=== PATIENT | female | born 1940 | race Caucasian/White ===

== ENCOUNTER 2025-01-24 16:42 | Inpatient (IN) | payer MEDICARE, BC ==
[~2025-01-24] VITALS: Ht 144.8 cm; Wt 47.6 kg
[2025-01-24] MEDS ORDERED: GLAUCOMA DROPS (17:49)
[2025-01-24 18:10] LABS: BASOPHILS % (AUTO) 0.5 % (0.0-2.0); EOSINOPHILS % (AUTO) 0.4 % (0.0-7.0); HEMATOCRIT 37.9 % (31.2-41.9); HEMOGLOBIN 12.3 g/dL (10.9-14.3); LYMPHOCYTES # (AUTO) 1.5 K/uL (0.8-4.8); LYMPHOCYTES % (AUTO) 27.8 % (20.5-51.5); MEAN CORPUSCULAR HEMOGLOBIN 28.4 uug (24.7-32.8); MEAN CORPUSCULAR HGB CONC 32 g/dL (32.3-35.6); MEAN CORPUSCULAR VOLUME 87.9 fL (75.5-95.3); MONOCYTES # (AUTO) 0.5 K/uL (0.1-1.30); MONOCYTES % (AUTO) 8.5 % (0.0-11.0); NEUTROPHILS # (AUTO) 3.4 K/uL (1.8-8.9); NEUTROPHILS % (AUTO) 62.8 % (38.5-71.5); PLATELET COUNT (AUTO) 264 K/uL (179-408); RED BLOOD CELL COUNT(AUTO) 4.32 MIL/uL (3.63-4.92); RED CELL DISTRIBUTION WIDTH 14.7 % (12.3-17.7); WHITE BLOOD COUNT (AUTO) 5.4 K/uL (3.8-11.8)
[2025-01-24 18:37] LABS: DIFFERENTIAL COMMENT 1
[2025-01-24 18:49] LABS: ALANINE AMINOTRANSFERASE 29 U/L (14-59); ALBUMIN 3.8 g/dL (3.4-5.0); ALKALINE PHOSPHATASE 69 U/L (50-136); ASPARTATE AMINOTRANSFERASE 23 U/L (15-37); BILIRUBIN,DIRECT 0.2 mg/dL (0.0-0.2); BILIRUBIN,TOTAL 0.5 mg/dL (0.2-1.0); CALCIUM 11.3 mg/dL (8.5-10.1); CARBON DIOXIDE 31 mmol/L (21-32); CHLORIDE 104 mmol/L (98-107); CREATININE 0.6 mg/dL (0.6-1.3); GLUCOSE 104 mg/dL (74-106); LIPASE 117 U/L (16-77); POTASSIUM 4.8 mmol/L (3.5-5.1); SODIUM SERUM 140 mmol/L (136-145); TOTAL PROTEIN, SERUM 7.2 g/dL (6.4-8.2); UREA NITROGEN, BLOOD 20 mg/dL (7-18)
[2025-01-24 19:31] LABS: *BILIRUBIN,URIN NEGATIVE (NEGATIVE); *CLARITY,URINE CLEAR (CLEAR); *COLOR,URINE YELLOW (YELLOW); *KETONES,URINE NEGATIVE (NEGATIVE); *PROTEIN,URINE NEGATIVE (NEGATIVE); *UROBILINOGEN,URINE 0.2 E.U./dl (NORMAL); LEUKOCYTE ESTERASE ,URINE 2+ (NEGATIVE); NITRITE, URINE NEGATIVE (NEGATIVE); PH,URINE 6.5 (5.0-8.0); UGLUCOSE NEGATIVE (NEGATIVE)
[2025-01-24 19:33] LABS: *BLOOD, URINE TRACE (NEGATIVE)
[2025-01-24] MEDS ORDERED: ONDANSETRON 4 MG/2 ML VIAL IV ONE (20:00)
[2025-01-24] MEDS ORDERED: MORPHINE SULFATE 2 MG/1 ML DISP.SYRIN IV ONE (20:00)
[2025-01-24 20:10] LABS: BACTERIA,URINE FEW /HPF (NONE SEEN); CALCIUM OXALATE CRYSTALS,UR FEW /HPF (NONE SEEN); RBC,URINE 0-3 /HPF (0-3)
[2025-01-24] MEDS ORDERED: HYDROCODONE/APAP 10-325 MG TABLET ONE (20:13)
[2025-01-24] MEDS: HYDROCODONE/APAP 10-325 MG TABLET PO ONE (20:17)
[2025-01-24] MEDS: VANCOMYCIN IV 1,000 MG in IV DEXTROSE 5% 250 ML IV ONE (21:03)
[2025-01-24] MEDS ORDERED: MAGNESIUM HYDROXIDE 30 ML LIQUID UDC PO PRN (22:45)
[2025-01-24] MEDS ORDERED: REMEDY ESSENTIAL ZINC PASTE 113 GM TP PRN (22:45)
[2025-01-24] MEDS ORDERED: ONDANSETRON 4 MG/2 ML VIAL IV PRN (22:45)
[2025-01-25 00:45] VITALS: BP 145/83; TEMP 98.3; O2SAT 98
[2025-01-25] MEDS: IV NS 1000 ML 1,000 ML IV PRN (01:06)
[2025-01-25] MEDS: ACETAMINOPHEN 325 MG TABLET PO PRN (01:17)
[2025-01-25] MEDS ORDERED: METHOCARBAMOL 500 MG TABLET PO PRN (03:45)
[2025-01-25 05:49] VITALS: BP 161/89; TEMP 98.2; O2SAT 99
[2025-01-25] MEDS ORDERED: PIPERACILLIN SODIUM/TAZOBACTAM 3.375 G in IV DEXTROSE 5% 50 ML IV SCH (06:00)
[2025-01-25 07:41] LABS: BASOPHILS % (AUTO) 0.7 % (0.0-2.0); EOSINOPHILS % (AUTO) 0.7 % (0.0-7.0); HEMATOCRIT 38.7 % (31.2-41.9); HEMOGLOBIN 12.8 g/dL (10.9-14.3); LYMPHOCYTES # (AUTO) 1.3 K/uL (0.8-4.8); LYMPHOCYTES % (AUTO) 24.1 % (20.5-51.5); MEAN CORPUSCULAR HGB CONC 33 g/dL (32.3-35.6); MEAN CORPUSCULAR VOLUME 87.6 fL (75.5-95.3); MONOCYTES # (AUTO) 0.4 K/uL (0.1-1.30); MONOCYTES % (AUTO) 8.1 % (0.0-11.0); NEUTROPHILS # (AUTO) 3.5 K/uL (1.8-8.9); NEUTROPHILS % (AUTO) 66.4 % (38.5-71.5); PLATELET COUNT (AUTO) 255 K/uL (179-408); RED BLOOD CELL COUNT(AUTO) 4.42 MIL/uL (3.63-4.92); RED CELL DISTRIBUTION WIDTH 14.1 % (12.3-17.7); WHITE BLOOD COUNT (AUTO) 5.2 K/uL (3.8-11.8)
[2025-01-25 07:43] LABS: DIFFERENTIAL COMMENT 1
[2025-01-25 07:56] LABS: CALCIUM 10.4 mg/dL (8.5-10.1); CARBON DIOXIDE 32 mmol/L (21-32); CHLORIDE 106 mmol/L (98-107); CREATININE 0.7 mg/dL (0.6-1.3); GLUCOSE 90 mg/dL (74-106); PHOSPHOROUS 3.1 mg/dL (2.5-4.9); POTASSIUM 3.5 mmol/L (3.5-5.1); SODIUM SERUM 131 mmol/L (136-145); UREA NITROGEN, BLOOD 14 mg/dL (7-18)
[2025-01-25] MEDS: PIPERACILLIN SODIUM/TAZOBACTAM 3.375 G in IV DEXTROSE 5% 100 ML IV SCH (10:07)
[2025-01-25] MEDS: METHOCARBAMOL 500 MG TABLET PO PRN (10:33)
[2025-01-25] MEDS ORDERED: DORZ1DRO7 LEFTEYE (11:13)
[2025-01-25] MEDS ORDERED: TRAV2.5D7 LEFTEYE (11:13)
[2025-01-25] MEDS ORDERED: CARB15DR OP (11:13)
[2025-01-25 12:21] VITALS: BP 127/80; TEMP 97.5; O2SAT 98
[2025-01-25 16:53] VITALS: TEMP 98
[2025-01-25] MEDS ORDERED: CARBOXYMETHYLCELLULOSE SODIUM OP PRN (18:15)
[2025-01-26] MEDS: PANTOPRAZOLE SODIUM 40 MG TABLET.DR PO SCH (06:40)
[2025-01-26 07:29] LABS: BASOPHILS % (AUTO) 0.5 % (0.0-2.0); EOSINOPHILS % (AUTO) 1.1 % (0.0-7.0); HEMATOCRIT 32.5 % (31.2-41.9); HEMOGLOBIN 11.2 g/dL (10.9-14.3); LYMPHOCYTES % (AUTO) 26.2 % (20.5-51.5); MEAN CORPUSCULAR HGB CONC 35 g/dL (32.3-35.6); MEAN CORPUSCULAR VOLUME 86.8 fL (75.5-95.3); MONOCYTES # (AUTO) 0.3 K/uL (0.1-1.30); MONOCYTES % (AUTO) 8.9 % (0.0-11.0); NEUTROPHILS # (AUTO) 2.5 K/uL (1.8-8.9); NEUTROPHILS % (AUTO) 63.3 % (38.5-71.5); PLATELET COUNT (AUTO) 226 K/uL (179-408); RED BLOOD CELL COUNT(AUTO) 3.74 MIL/uL (3.63-4.92); RED CELL DISTRIBUTION WIDTH 14.4 % (12.3-17.7); WHITE BLOOD COUNT (AUTO) 3.9 K/uL (3.8-11.8)
[2025-01-26 07:51] LABS: DIFFERENTIAL COMMENT 1
[2025-01-26] MEDS: ENSURE ENLIVE (VAN) 240 ML LIQUID PO SCH (08:03)
[2025-01-26 08:28] LABS: ALANINE AMINOTRANSFERASE 33 U/L (14-59); ALBUMIN 3.2 g/dL (3.4-5.0); ALKALINE PHOSPHATASE 63 U/L (50-136); ASPARTATE AMINOTRANSFERASE 22 U/L (15-37); BILIRUBIN,TOTAL 0.7 mg/dL (0.2-1.0); CALCIUM 10.4 mg/dL (8.5-10.1); CARBON DIOXIDE 28 mmol/L (21-32); CHLORIDE 106 mmol/L (98-107); CHOLESTEROL 175 mg/dL (<200); CREATININE 0.8 mg/dL (0.6-1.3); GLUCOSE 102 mg/dL (74-106); HDL CHOLESTEROL 50 mg/dL (40-60); MAGNESIUM 2.1 mg/dL (1.8-2.4); NT-PRO BNP 103 pg/mL (0-125); PHOSPHOROUS 3.4 mg/dL (2.5-4.9); POTASSIUM 3.6 mmol/L (3.5-5.1); SODIUM SERUM 141 mmol/L (136-145); TOTAL PROTEIN, SERUM 6.6 g/dL (6.4-8.2); TRIGLYCERIDES 98 MG/DL (30-150); UREA NITROGEN, BLOOD 11 mg/dL (7-18)
[2025-01-26 09:39] LABS: THYROID STIMULATING HORMONE 0.514 mIU/mL (0.358-3.740)
[2025-01-26 10:06] LABS: LIPASE 82 U/L (16-77)
[2025-01-26 11:19] VITALS: BP 117/60; TEMP 98.4; O2SAT 96
[2025-01-26] MEDS ORDERED: POLYVINYL ALCOHOL OPHT DROPS 15 ML BOTTLE EACHEYE PRN (11:45)
[2025-01-26 15:57] VITALS: BP 111/67; TEMP 98.4; O2SAT 98
[2025-01-26 23:27] VITALS: BP 149/85; TEMP 98.7; O2SAT 97
[2025-01-27 06:53] VITALS: BP 147/81; TEMP 98.6; O2SAT 96
[2025-01-27] MEDS: CYANOCOBALAMIN 1000 MCG/ML VIAL IM SCH (08:06)
[2025-01-27 10:42] VITALS: BP 146/86; TEMP 97.5; O2SAT 97
[2025-01-27 15:45] VITALS: BP 152/89; TEMP 97.6; O2SAT 96
[2025-01-27] MEDS: PIPERACILLIN SODIUM/TAZOBACTAM 3.375 G in IV DEXTROSE 5% 100 ML IV SCH (17:03)
[2025-01-27] MEDS ORDERED: CEFTRIAXONE 1 G in IV DEXTROSE 5% 50 ML IV SCH (18:00)
[2025-01-27] MEDS: MIRALAX 17 GM POWD.PACK PO ONE (18:43)
[2025-01-27 19:40] VITALS: BP 125/78; TEMP 98.6; O2SAT 95
[2025-01-27] MEDS: DORZOLAMIDE/TIMOLOL OPHT DROP 10 ML BOTTLE LEFTEYE SCH (20:33)
[2025-01-27] MEDS: DOCUSATE SODIUM 100 MG CAPSULE PO SCH (20:33)
[2025-01-27] MEDS: LATANOPROST OPHT DROP 2.5 ML BOTTLE LEFTEYE SCH (20:33)
[2025-01-28 06:03] VITALS: BP 147/94; TEMP 98.1; O2SAT 99
[2025-01-28 07:31] LABS: BASOPHILS % (AUTO) 0.8 % (0.0-2.0); EOSINOPHILS % (AUTO) 0.7 % (0.0-7.0); HEMATOCRIT 39.3 % (31.2-41.9); HEMOGLOBIN 13.1 g/dL (10.9-14.3); LYMPHOCYTES # (AUTO) 1.4 K/uL (0.8-4.8); LYMPHOCYTES % (AUTO) 28.3 % (20.5-51.5); MEAN CORPUSCULAR HEMOGLOBIN 28.9 uug (24.7-32.8); MEAN CORPUSCULAR HGB CONC 33 g/dL (32.3-35.6); MONOCYTES # (AUTO) 0.3 K/uL (0.1-1.30); NEUTROPHILS # (AUTO) 3.1 K/uL (1.8-8.9); NEUTROPHILS % (AUTO) 63.2 % (38.5-71.5); PLATELET COUNT (AUTO) 279 K/uL (179-408); RED BLOOD CELL COUNT(AUTO) 4.51 MIL/uL (3.63-4.92); RED CELL DISTRIBUTION WIDTH 14.8 % (12.3-17.7); WHITE BLOOD COUNT (AUTO) 4.9 K/uL (3.8-11.8)
[2025-01-28 08:08] LABS: DIFFERENTIAL COMMENT 1
[2025-01-28 08:11] LABS: CALCIUM 10.5 mg/dL (8.5-10.1); CARBON DIOXIDE 29 mmol/L (21-32); CHLORIDE 107 mmol/L (98-107); CREATININE 0.6 mg/dL (0.6-1.3); GLUCOSE 90 mg/dL (74-106); MAGNESIUM 2.2 mg/dL (1.8-2.4); PHOSPHOROUS 3.3 mg/dL (2.5-4.9); POTASSIUM 3.7 mmol/L (3.5-5.1); SODIUM SERUM 145 mmol/L (136-145); UREA NITROGEN, BLOOD 11 mg/dL (7-18)
[2025-01-28] MEDS ORDERED: ASPIRIN EC 81 MG TABLET.DR PO SCH (09:00)
[2025-01-28 11:14] VITALS: BP 134/75; TEMP 98.2; O2SAT 96
[2025-01-28] MEDS ORDERED: Lactose-Free Food PO (12:15)
[2025-01-28] MEDS ORDERED: ACET325T53 PO (12:15)
[2025-01-28] MEDS ORDERED: LATA2.5D2 LEFTEYE (12:15)
[2025-01-28] MEDS ORDERED: POLY15DR27 EACHEYE (12:15)
[2025-01-28] MEDS ORDERED: DOCU-141 PO (12:15)
[2025-01-28] MEDS ORDERED: MAGN400O6 PO ×2 (12:15→15:24)
[2025-01-28] MEDS ORDERED: PANT40TA49 PO (12:15)
[2025-01-28] MEDS ORDERED: MENT113O TP (12:15)
[2025-01-28] MEDS ORDERED: CYAN10006 IM (12:15)
[2025-01-28] MEDS ORDERED: DORZ10DR11 LEFTEYE ×2 (12:15→15:14)
[2025-01-28] MEDS ORDERED: ACID1TAB4 PO (12:18)
[2025-01-28] MEDS ORDERED: NITR100C11 PO (12:18)
[2025-01-28] MEDS ORDERED: ACET650T10 PO (15:15)
[2025-01-28] MEDS ORDERED: LACT-215 PO (15:17)
[2025-01-28] MEDS ORDERED: LATA7.5D LEFTEYE (15:22)
[2025-01-28] MEDS ORDERED: MENT113O TOP (15:27)
[2025-01-28] MEDS ORDERED: POLY15DR31 EACHEYE (15:29)
== END 2025-01-28 14:29 | DRG 689 ==
LOC: ER 16:47 → MEDSURG3 23:00
PROVIDERS: ADMIT Nurse Practitioner Acute Care; ATTEND Internal Medicine
DX: N13.6 Pyonephrosis (principal); G92.8 Other toxic encephalopathy; K85.90 Acute pancreatitis without necrosis or infection, unspecified; D68.59 Other primary thrombophilia; M48.56XA Collapsed vertebra, not elsewhere classified, lumbar region, initial encounter for fracture; E44.1 Mild protein-calorie malnutrition; E87.1 Hypo-osmolality and hyponatremia; H40.9 Unspecified glaucoma; Z74.09 Other reduced mobility; Z87.440 Personal history of urinary (tract) infections; Z90.710 Acquired absence of both cervix and uterus; K57.30 Diverticulosis of large intestine without perforation or abscess without bleeding; D18.03 Hemangioma of intra-abdominal structures; E88.09 Other disorders of plasma-protein metabolism, not elsewhere classified; E86.0 Dehydration; Z88.3 Allergy status to other anti-infective agents; Z88.5 Allergy status to narcotic agent; Z88.6 Allergy status to analgesic agent; K56.41 Fecal impaction; R91.8 Other nonspecific abnormal finding of lung field; I25.10 Atherosclerotic heart disease of native coronary artery without angina pectoris; E83.52 Hypercalcemia; R79.89 Other specified abnormal findings of blood chemistry; G89.29 Other chronic pain; R26.2 Difficulty in walking, not elsewhere classified; G31.84 Mild cognitive impairment of uncertain or unknown etiology; Z91.040 Latex allergy status; M15.9 Polyosteoarthritis, unspecified; E53.8 Deficiency of other specified B group vitamins; Z88.2 Allergy status to sulfonamides; Z88.1 Allergy status to other antibiotic agents; Z91.81 History of falling
CPT/HCPCS: 36415; 71045; 74018; 83690; 83735; 84100; 84443; 84484; 85025; 85730; 86301; 87040; 87086; 93005; G0378; J0696; J2543; J3420; J7040

== ENCOUNTER 2025-01-28 13:30 | Inpatient (IN) | payer MEDICARE, BC ==
[2025-01-27 22:30] VITALS: BP 152/89; TEMP 97.6
[2025-01-27 23:01] VITALS: BP 152/89; TEMP 97.6
[~2025-01-28] VITALS: Ht 144.8 cm; Wt 47.6 kg
[~2025-01-28 13:30] MED LIST: ACET325T53 PO; ACID1TAB4 PO; CARB15DR OP; CYAN10006 IM; DOCU-141 PO; DORZ10DR11 LEFTEYE; DORZ1DRO7 LEFTEYE; IOHEXOL 300MG/ML 100 ML INFUS..BTL ONE; IV NORMAL SALINE 250 ML IV ONE; LATA2.5D2 LEFTEYE; Lactose-Free Food PO; MAGN400O6 PO; MENT113O TP; NITR100C11 PO; PANT40TA49 PO; POLY15DR27 EACHEYE; SWABABLE VALVE TRANSFER SET EA MC ONE; TRAV2.5D7 LEFTEYE
[2025-01-28] MEDS ORDERED: DORZ10DR11 LEFTEYE (15:14)
[2025-01-28] MEDS ORDERED: ACET650T10 PO (15:15)
[2025-01-28] MEDS ORDERED: LACT-215 PO (15:17)
[2025-01-28] MEDS ORDERED: LATA7.5D LEFTEYE (15:22)
[2025-01-28] MEDS ORDERED: MAGN400O6 PO (15:24)
[2025-01-28] MEDS ORDERED: MENT113O TOP (15:27)
[2025-01-28] MEDS ORDERED: POLY15DR31 EACHEYE (15:29)
[2025-01-28 16:00] VITALS: TEMP 99
[2025-01-28 20:18] VITALS: BP 127/80; TEMP 98.3; O2SAT 97
[2025-01-28] MEDS: NITROFURANTOIN/NITROFURAN MAC 100 MG CAPSULE PO SCH (20:42)
[2025-01-28] MEDS: DOCUSATE SODIUM 100 MG CAPSULE PO SCH (20:43)
[2025-01-28] MEDS: DORZOLAMIDE/TIMOLOL OPHT DROP 10 ML BOTTLE LEFTEYE SCH (20:43)
[2025-01-29 05:15] VITALS: BP 158/78; TEMP 98.2; O2SAT 95
[2025-01-29] MEDS: PANTOPRAZOLE SODIUM 40 MG TABLET.DR PO SCH (06:14)
[2025-01-29 07:50] VITALS: BP 131/73; TEMP 98.5; O2SAT 98
[2025-01-29] MEDS: ACIDOPHILUS/BULGARICUS CHEW TAB PO SCH (08:17)
[2025-01-29] MEDS: ENSURE ENLIVE (VAN) 240 ML LIQUID PO SCH (08:17)
[2025-01-29] MEDS: CYANOCOBALAMIN 1000 MCG/ML VIAL IM SCH (08:19)
[2025-01-29 16:00] VITALS: BP 131/82; TEMP 98.5; O2SAT 96
[2025-01-29 21:57] VITALS: BP 118/74; TEMP 98.5; O2SAT 92
[2025-01-30] MEDS: ACETAMINOPHEN 325 MG TABLET PO PRN (00:42)
[2025-01-30 06:12] VITALS: BP 140/78; TEMP 97.8
[2025-01-30 08:00] VITALS: TEMP 98.3
[2025-01-30 16:36] VITALS: TEMP 97.7
[2025-01-30 20:30] VITALS: BP 122/63; TEMP 98.3; O2SAT 92
[2025-01-31 06:00] VITALS: BP 121/67; TEMP 98.5; O2SAT 97
[2025-01-31 08:00] VITALS: BP 135/65; TEMP 97.2; O2SAT 96
[2025-01-31] MEDS: REMEDY ESSENTIAL ZINC PASTE 113 GM TOP PRN (11:12)
[2025-01-31 15:05] LABS: BASOPHILS % (AUTO) 0.8 % (0.0-2.0); EOSINOPHILS # (AUTO) 0.1 K/uL (0.0-0.7); HEMATOCRIT 42.5 % (31.2-41.9); LYMPHOCYTES # (AUTO) 1.5 K/uL (0.8-4.8); LYMPHOCYTES % (AUTO) 29.8 % (20.5-51.5); MEAN CORPUSCULAR HEMOGLOBIN 28.6 uug (24.7-32.8); MEAN CORPUSCULAR HGB CONC 33 g/dL (32.3-35.6); MEAN CORPUSCULAR VOLUME 87.1 fL (75.5-95.3); MONOCYTES # (AUTO) 0.6 K/uL (0.1-1.30); MONOCYTES % (AUTO) 10.7 % (0.0-11.0); NEUTROPHILS % (AUTO) 57.7 % (38.5-71.5); PLATELET COUNT (AUTO) 305 K/uL (179-408); RED BLOOD CELL COUNT(AUTO) 4.88 MIL/uL (3.63-4.92); RED CELL DISTRIBUTION WIDTH 14.5 % (12.3-17.7); WHITE BLOOD COUNT (AUTO) 5.1 K/uL (3.8-11.8)
[2025-01-31 15:08] LABS: DIFFERENTIAL COMMENT 1
[2025-01-31 15:16] LABS: ALANINE AMINOTRANSFERASE 33 U/L (14-59); ALBUMIN 3.6 g/dL (3.4-5.0); ALKALINE PHOSPHATASE 74 U/L (50-136); ASPARTATE AMINOTRANSFERASE 19 U/L (15-37); BILIRUBIN,TOTAL 0.5 mg/dL (0.2-1.0); CALCIUM 11.1 mg/dL (8.5-10.1); CARBON DIOXIDE 34 mmol/L (21-32); CHLORIDE 103 mmol/L (98-107); CREATININE 0.7 mg/dL (0.6-1.3); GLUCOSE 108 mg/dL (74-106); POTASSIUM 4.2 mmol/L (3.5-5.1); SODIUM SERUM 142 mmol/L (136-145); TOTAL PROTEIN, SERUM 7.6 g/dL (6.4-8.2); UREA NITROGEN, BLOOD 16 mg/dL (7-18)
[2025-01-31 16:00] VITALS: BP 159/85; TEMP 97.2; O2SAT 97
[2025-01-31 20:50] VITALS: BP 117/66; TEMP 98.4; O2SAT 93
[2025-02-01] MEDS: TRAMADOL HCL 50 MG TABLET PO PRN (06:04)
[2025-02-01 06:31] VITALS: BP 132/75; TEMP 98.1; O2SAT 96
[2025-02-01 07:57] VITALS: TEMP 97.4
[2025-02-01 16:20] VITALS: TEMP 97.3
[2025-02-01 19:54] VITALS: BP 96/58; TEMP 98.4; O2SAT 93
[2025-02-01] MEDS: POLYVINYL ALCOHOL OPHT DROPS 15 ML BOTTLE EACHEYE PRN (20:44)
[2025-02-02 05:30] VITALS: BP 141/84; TEMP 98.2; O2SAT 97
[2025-02-02 07:40] LABS: BASOPHILS % (AUTO) 0.8 % (0.0-2.0); HEMATOCRIT 37.4 % (31.2-41.9); HEMOGLOBIN 12.5 g/dL (10.9-14.3); LYMPHOCYTES # (AUTO) 1.7 K/uL (0.8-4.8); LYMPHOCYTES % (AUTO) 38.2 % (20.5-51.5); MEAN CORPUSCULAR HEMOGLOBIN 29.1 uug (24.7-32.8); MEAN CORPUSCULAR HGB CONC 34 g/dL (32.3-35.6); MEAN CORPUSCULAR VOLUME 86.9 fL (75.5-95.3); MONOCYTES # (AUTO) 0.3 K/uL (0.1-1.30); MONOCYTES % (AUTO) 7.7 % (0.0-11.0); NEUTROPHILS # (AUTO) 2.3 K/uL (1.8-8.9); NEUTROPHILS % (AUTO) 52.3 % (38.5-71.5); PLATELET COUNT (AUTO) 258 K/uL (179-408); RED CELL DISTRIBUTION WIDTH 14.6 % (12.3-17.7); WHITE BLOOD COUNT (AUTO) 4.4 K/uL (3.8-11.8)
[2025-02-02 07:54] LABS: CALCIUM 10.7 mg/dL (8.5-10.1); CARBON DIOXIDE 32 mmol/L (21-32); CHLORIDE 105 mmol/L (98-107); CREATININE 0.8 mg/dL (0.6-1.3); DIFFERENTIAL COMMENT 1; GLUCOSE 91 mg/dL (74-106); POTASSIUM 3.8 mmol/L (3.5-5.1); SODIUM SERUM 142 mmol/L (136-145); UREA NITROGEN, BLOOD 19 mg/dL (7-18)
[2025-02-02 08:00] VITALS: BP 118/73; TEMP 98; O2SAT 98
[2025-02-02 14:39] LABS: *BILIRUBIN,URIN NEGATIVE (NEGATIVE); *CLARITY,URINE CLEAR (CLEAR); *COLOR,URINE YELLOW (YELLOW); *KETONES,URINE NEGATIVE (NEGATIVE); *PROTEIN,URINE NEGATIVE (NEGATIVE); *UROBILINOGEN,URINE 0.2 E.U./dl (NORMAL); LEUKOCYTE ESTERASE ,URINE 1+ (NEGATIVE); NITRITE, URINE NEGATIVE (NEGATIVE); UGLUCOSE NEGATIVE (NEGATIVE)
[2025-02-02 14:41] LABS: *BLOOD, URINE TRACE (NEGATIVE)
[2025-02-02 14:58] LABS: RBC,URINE 0-3 /HPF (0-3)
[2025-02-02 14:59] LABS: BACTERIA,URINE FEW /HPF (NONE SEEN); SQUAMOUS EPITHELIAL CELL,UR FEW /HPF (NONE SEEN)
[2025-02-02 16:04] VITALS: BP 138/72; TEMP 98.1; O2SAT 95
[2025-02-02 20:59] VITALS: BP 119/66; TEMP 98.9; O2SAT 95
[2025-02-03 06:24] VITALS: BP 120/68; TEMP 98.5; O2SAT 95
[2025-02-03 08:00] VITALS: BP 142/86; TEMP 98.4; O2SAT 95
[2025-02-03] MEDS: METHYL SALICYLATE/MENTHOL CREAM 28 GM TUBE TOP SCH (13:01)
[2025-02-03 15:52] VITALS: BP 114/72; TEMP 98; O2SAT 96
[2025-02-03] MEDS: NITROFURANTOIN/NITROFURAN MAC 100 MG CAPSULE PO SCH (17:58)
[2025-02-03 21:15] VITALS: BP 107/65; TEMP 98; O2SAT 95
[2025-02-04 06:23] VITALS: BP 110/69; TEMP 98.9; O2SAT 95
[2025-02-04 08:00] VITALS: BP 122/86; TEMP 98.5; O2SAT 95
[2025-02-04 17:00] VITALS: BP 164/90; TEMP 98.2; O2SAT 96
[2025-02-04] MEDS: MAGNESIUM HYDROXIDE 30 ML LIQUID UDC PO PRN (17:03)
[2025-02-04] MEDS: PHENAZOPYRIDINE HCL 100 MG TABLET PO SCH (17:03)
[2025-02-04 20:15] VITALS: BP 135/79; TEMP 98.2; O2SAT 95
[2025-02-05 06:41] VITALS: BP 132/72; TEMP 98.6; O2SAT 96
[2025-02-05 07:54] VITALS: TEMP 98.1
[2025-02-05] MEDS: HYDROCODONE/APAP 10-325 MG TABLET PO PRN (15:16)
[2025-02-05 16:00] VITALS: TEMP 98.8
[2025-02-05 19:35] VITALS: BP 112/57; TEMP 98.1; O2SAT 93
[2025-02-06 04:07] LABS: CALCITRIOL VIT D,1,25 DIHYDROX 34.4 pg/mL (24.8-81.5)
[2025-02-06 05:40] VITALS: BP 142/83; TEMP 98; O2SAT 96
[2025-02-06 08:00] VITALS: BP 132/72; TEMP 97.6; O2SAT 96
[2025-02-06 16:17] VITALS: BP 128/74; TEMP 97.6; O2SAT 97
[2025-02-06 21:25] VITALS: BP 138/76; TEMP 98.5; O2SAT 94
[2025-02-07 07:23] VITALS: BP 135/69; TEMP 98.6; O2SAT 93
[2025-02-07 07:56] VITALS: BP 137/76; TEMP 98.7
[2025-02-07] MEDS ORDERED: LIDOCAINE 5% PATCH TD PRN (14:15)
[2025-02-07] MEDS: LIDOCAINE 5% PATCH TD SCH (14:19)
[2025-02-07 15:10] LABS: *BILIRUBIN,URIN NEGATIVE (NEGATIVE); *BLOOD, URINE NEGATIVE (NEGATIVE); *CLARITY,URINE SLIGHTLY CLOUDY (CLEAR); *COLOR,URINE YELLOW (YELLOW); *KETONES,URINE NEGATIVE (NEGATIVE); *PROTEIN,URINE NEGATIVE (NEGATIVE); *UROBILINOGEN,URINE 0.2 E.U./dl (NORMAL); LEUKOCYTE ESTERASE ,URINE NEGATIVE (NEGATIVE); NITRITE, URINE POSITIVE (NEGATIVE); UGLUCOSE NEGATIVE (NEGATIVE)
[2025-02-07 15:26] LABS: BACTERIA,URINE MODERATE /HPF (NONE SEEN); RBC,URINE NONE SEEN /HPF (0-3); SQUAMOUS EPITHELIAL CELL,UR FEW /HPF (NONE SEEN); WBC,URINE 0-3 /HPF (0-3)
[2025-02-07 15:27] LABS: URINE AMORPHOUS URATE MODERATE /HPF
[2025-02-07 16:05] VITALS: BP 132/78; TEMP 98.4
[2025-02-07] MEDS: TRAMADOL HCL 50 MG TABLET PO PRN (21:16)
[2025-02-07 21:50] VITALS: BP 104/62; TEMP 98.9; O2SAT 91
[2025-02-08 07:19] VITALS: BP 127/63; TEMP 98.2; O2SAT 95
[2025-02-08 08:00] VITALS: BP 129/75; TEMP 97.6; O2SAT 96
[2025-02-08] MEDS: HYDROCODONE/APAP 10-325 MG TABLET PO PRN (11:11)
[2025-02-08 16:00] VITALS: BP 126/54; TEMP 78; O2SAT 97
[2025-02-08 19:20] VITALS: BP 111/59; TEMP 98.5; O2SAT 94
[2025-02-09 05:30] VITALS: BP 124/72; TEMP 98.4; O2SAT 94
[2025-02-09 07:59] VITALS: BP 118/70; TEMP 98.1; O2SAT 93
[2025-02-09] MEDS ORDERED: KETOROLAC TROMETHAMINE 30 MG INJ IM ONE (11:15)
[2025-02-09] MEDS: KETOROLAC TROMETHAMINE 30 MG INJ IM ONE (12:02)
[2025-02-09 15:35] VITALS: BP 144/85; TEMP 97; O2SAT 97
== END 2025-02-09 17:30 | disposition home health service (06) | DRG 91 ==
PROVIDERS: ADMIT Physical Medicine & Rehabilitation Pain Medicine; ATTEND Physical Medicine & Rehabilitation Pain Medicine
DX: G92.8 Other toxic encephalopathy (principal); K85.90 Acute pancreatitis without necrosis or infection, unspecified; D68.59 Other primary thrombophilia; E44.1 Mild protein-calorie malnutrition; N13.6 Pyonephrosis; E86.1 Hypovolemia; R53.1 Weakness; M19.90 Unspecified osteoarthritis, unspecified site; G31.84 Mild cognitive impairment of uncertain or unknown etiology; D18.03 Hemangioma of intra-abdominal structures; D73.89 Other diseases of spleen; E83.52 Hypercalcemia; E88.09 Other disorders of plasma-protein metabolism, not elsewhere classified; K57.30 Diverticulosis of large intestine without perforation or abscess without bleeding; K59.00 Constipation, unspecified; Z91.81 History of falling; R29.6 Repeated falls; M51.369 Other intervertebral disc degeneration, lumbar region without mention of lumbar back pain or lower extremity pain; Z87.440 Personal history of urinary (tract) infections; Z87.442 Personal history of urinary calculi; Z88.1 Allergy status to other antibiotic agents; Z88.2 Allergy status to sulfonamides; Z88.3 Allergy status to other anti-infective agents; Z88.5 Allergy status to narcotic agent; Z88.6 Allergy status to analgesic agent; Z90.710 Acquired absence of both cervix and uterus; G89.29 Other chronic pain; S32.009D Unspecified fracture of unspecified lumbar vertebra, subsequent encounter for fracture with routine healing; W19.XXXD Unspecified fall, subsequent encounter; R26.2 Difficulty in walking, not elsewhere classified; I25.10 Atherosclerotic heart disease of native coronary artery without angina pectoris; H40.9 Unspecified glaucoma
CPT/HCPCS: 36415; 82652; 83970; 85025; 87077; 87086; 97535-GO-CO; A4663; J1885; J3420; Q9967